=== PATIENT | female | born 1965 | race American Indian/Alaskan Native ===

== ENCOUNTER 2016-08-24 10:23 | Outpatient (CLI) | payer OTHER ==
--- NOTE | 2016-08-24 14:28 | Mammography Report ---
BILATERAL DIGITAL SCREENING MAMMOGRAM with CAD: 08/24/16 10:23:00 CLINICAL: Routine screening. COMPARISON: 08/21/15 FINDINGS: There are bilateral scattered areas of fibroglandular density.No mass, architectural distortion or suspicious calcifications. IMPRESSION: No mammographic evidence of malignancy. BI-RADS CATEGORY: 1 -- Negative RECOMMENDATION: Routine mammographic screening in one year. COMMENT: Patient follow-up letters are generated by our [employer] application.
== END 2016-08-24 10:24 | disposition home or self-care (01) ==
LOC: MAMMO 10:23
PROVIDERS: ATTEND Obstetrics & Gynecology Gynecology
DX: Z12.31 Encounter for screening mammogram for malignant neoplasm of breast (principal)
CPT/HCPCS: 77067; G0202

== ENCOUNTER 2017-08-06 08:55 | Outpatient (CLI) | payer OTHER ==
--- NOTE | 2017-08-09 09:55 | Mammography Report ---
BILATERAL DIGITAL SCREENING MAMMOGRAM with CAD and BILATERAL DIGITAL BREAST TOMOSYNTHESIS (DBT) : 08/06/17 09:00:00 CLINICAL: Routine screening. COMPARISON:08/24/16 FINDINGS: There are bilateral scattered fibroglandular densities. A left inner asymmetry on the CC 2D and tomographic images requires additional imaging.No correlation on MLO views. No architectural distortion or suspicious calcifications. The right breast is negative. IMPRESSION: Left asymmetry requiring additional workup. BI-RADS CATEGORY: 0 - - Needs Additional Imaging RECOMMENDATION: Recall for left lateralmedial and CC magnification views and left inner breast ultrasound. COMMENT: Patient follow-up letters are generated by our [employer] application.
== END 2017-08-06 08:56 | disposition home or self-care (01) ==
LOC: MAMMO 08:55
PROVIDERS: ATTEND Obstetrics & Gynecology Gynecology
DX: Z12.31 Encounter for screening mammogram for malignant neoplasm of breast (principal)
CPT/HCPCS: 77063; 77067